=== PATIENT | female | born 1950 | race Caucasian/White ===

== ENCOUNTER → 2018-03-14 | Outpatient (CLI) | payer OTHER ==
[~2018-03-14] MED LIST: GADOBENATE DIMEGLUMINE 1 ML IV ONE
[2018-03-14 08:46] LABS: BLOOD UREA NITROGEN 11 mg/dL (7-26); BUN/CREATININE RATIO 15 (6-25); CREATININE, SERUM 0.75 mg/dL (0.57-1.11); EST GLOMERULAR FILTRATION RATE > 60 ML/MIN (60-)
--- NOTE | 2018-03-14 13:52 | Diagnostic Imaging Report ---
EXAMINATION: Brain MRI and MR angiogram of the [place] of [place] [facility] [place] CLINICAL HISTORY: Leg weakness, dizziness worsening for last 6 months. COMPARISON: None available TECHNIQUE: Brain: Sagittal T2; axial DWI, T2, FLAIR, T1-IR, T2 gradient echo; coronal FLAIR. Postcontrast axial, sagittal and coronal T1 fat sat. MRAs: 3D TOF and 2D-TOF images were obtained of the brain and neck. Intravenous Contrast: 14 ml of MultiHance. BRAIN MRI FINDINGS: Parenchyma: 1. Few scatter periventricular, gaspar radiata and centrum semiovale white matter T2 and FLAIR hyperintense foci, most likely nonspecific chronic microvascular ischemic changes, within normal limits for patient's age. No abnormal enhancement 2. No mass, hemorrhage, acute or chronic infarcts. Skull: Unremarkable. Vessels: Expected flow voids present in the major arteries and dural sinuses. Extra-axial spaces: No abnormal signal intensity or mass effect. Brain volume: Mild generalized brain volume loss. Ventricles: No hydrocephalus or displacement. Foramen magnum: Unremarkable. Sella: Unremarkable. Paranasal / mastoid sinuses: No significant inflammatory disease. MRA OF THE [place] : Mild vertebrobasilar dolichoectasia. The distal internal carotid, distal vertebral, basilar, and cerebral arteries are patent. No significant stenosis, occlusion, aneurysm, or arteriovenous malformation is seen. Anatomic variation: Anterior Communicating Artery: Not well visualized. Posterior Communicating Arteries: Patent on the left, with origin of the left MANAGER FUNCTIONAL. Not well-visualized on the right. Prominent infundibulum at the origin of the left posterior communicating artery versus tiny aneurysm. Vertebral arteries: The left is dominant MRA OF THE NECK: If present, stenosis of the carotid bulbs is measured based on NASCET criteria i.e area of maximum stenosis compared to the cervical ICA distal to the bulb. Aortic arch and origin of the vessels: Unremarkable. Right Carotid Artery: The common carotid, carotid bulb, internal and external carotid arteries at the level of the neck are normal in caliber, and patent, no evidence of stenoses. Left Carotid Artery: The common carotid, carotid bulb, internal and external carotid arteries at the level of the neck are normal in caliber, and patent, no evidence of stenoses. Vertebral Arteries: Both are normal in morphology and caliber. Both are codominant. No significant stenosis is seen. IMPRESSION: Brain MRI: 1. No acute infarcts. 2. Mild chronic microvascular ischemic changes. MR angiogram of the head and neck: Prominent infundibulum at the origin of the left posterior communicating artery. Otherwise normal MR angiography of the head and neck, particularly no major vessel occlusion or hemodynamically significant stenosis is seen in the carotid or vertebral arteries. Signed by: Dr. Dara Mendoza M.D. on 03/14/2018 1:49 PM
--- NOTE | 2018-03-14 13:52 | Diagnostic Imaging Report ---
EXAMINATION: Brain MRI and MR angiogram of the [place] of [place] [facility] [place] CLINICAL HISTORY: Leg weakness, dizziness worsening for last 6 months. COMPARISON: None available TECHNIQUE: Brain: Sagittal T2; axial DWI, T2, FLAIR, T1-IR, T2 gradient echo; coronal FLAIR. Postcontrast axial, sagittal and coronal T1 fat sat. MRAs: 3D TOF and 2D-TOF images were obtained of the brain and neck. Intravenous Contrast: 14 ml of MultiHance. BRAIN MRI FINDINGS: Parenchyma: 1. Few scatter periventricular, gaspar radiata and centrum semiovale white matter T2 and FLAIR hyperintense foci, most likely nonspecific chronic microvascular ischemic changes, within normal limits for patient's age. No abnormal enhancement 2. No mass, hemorrhage, acute or chronic infarcts. Skull: Unremarkable. Vessels: Expected flow voids present in the major arteries and dural sinuses. Extra-axial spaces: No abnormal signal intensity or mass effect. Brain volume: Mild generalized brain volume loss. Ventricles: No hydrocephalus or displacement. Foramen magnum: Unremarkable. Sella: Unremarkable. Paranasal / mastoid sinuses: No significant inflammatory disease. MRA OF THE [place] OF [place] : Mild vertebrobasilar dolichoectasia. The distal internal carotid, distal vertebral, basilar, and cerebral arteries are patent. No significant stenosis, occlusion, aneurysm, or arteriovenous malformation is seen. Anatomic variation: Anterior Communicating Artery: Not well visualized. Posterior Communicating Arteries: Patent on the left, with origin of the left AV SPECIALIST. Not well-visualized on the right. Prominent infundibulum at the origin of the left posterior communicating artery versus tiny aneurysm. Vertebral arteries: The left is dominant MRA OF THE NECK: If present, stenosis of the carotid bulbs is measured based on NASCET criteria i.e area of maximum stenosis compared to the cervical ICA distal to the bulb. Aortic arch and origin of the vessels: Unremarkable. Right Carotid Artery: The common carotid, carotid bulb, internal and external carotid arteries at the level of the neck are normal in caliber, and patent, no evidence of stenoses. Left Carotid Artery: The common carotid, carotid bulb, internal and external carotid arteries at the level of the neck are normal in caliber, and patent, no evidence of stenoses. Vertebral Arteries: Both are normal in morphology and caliber. Both are codominant. No significant stenosis is seen. IMPRESSION: Brain MRI: 1. No acute infarcts. 2. Mild chronic microvascular ischemic changes. MR angiogram of the head and neck: Prominent infundibulum at the origin of the left posterior communicating artery. Otherwise normal MR angiography of the head and neck, particularly no major vessel occlusion or hemodynamically significant stenosis is seen in the carotid or vertebral arteries. Signed by: Dr. Dara Mendoza M.D. on 03/14/2018 1:49 PM
--- NOTE | 2018-03-14 13:52 | Diagnostic Imaging Report ---
EXAMINATION: Brain MRI and MR angiogram of the [place] of [place] [facility] [place] CLINICAL HISTORY: Leg weakness, dizziness worsening for last 6 months. COMPARISON: None available TECHNIQUE: Brain: Sagittal T2; axial DWI, T2, FLAIR, T1-IR, T2 gradient echo; coronal FLAIR. Postcontrast axial, sagittal and coronal T1 fat sat. MRAs: 3D TOF and 2D-TOF images were obtained of the brain and neck. Intravenous Contrast: 14 ml of MultiHance. BRAIN MRI FINDINGS: Parenchyma: 1. Few scatter periventricular, gaspar radiata and centrum semiovale white matter T2 and FLAIR hyperintense foci, most likely nonspecific chronic microvascular ischemic changes, within normal limits for patient's age. No abnormal enhancement 2. No mass, hemorrhage, acute or chronic infarcts. Skull: Unremarkable. Vessels: Expected flow voids present in the major arteries and dural sinuses. Extra-axial spaces: No abnormal signal intensity or mass effect. Brain volume: Mild generalized brain volume loss. Ventricles: No hydrocephalus or displacement. Foramen magnum: Unremarkable. Sella: Unremarkable. Paranasal / mastoid sinuses: No significant inflammatory disease. MRA OF THE [place] : Mild vertebrobasilar dolichoectasia. The distal internal carotid, distal vertebral, basilar, and cerebral arteries are patent. No significant stenosis, occlusion, aneurysm, or arteriovenous malformation is seen. Anatomic variation: Anterior Communicating Artery: Not well visualized. Posterior Communicating Arteries: Patent on the left, with origin of the left STRENGTH AND CONDITIONING COACH. Not well-visualized on the right. Prominent infundibulum at the origin of the left posterior communicating artery versus tiny aneurysm. Vertebral arteries: The left is dominant MRA OF THE NECK: If present, stenosis of the carotid bulbs is measured based on NASCET criteria i.e area of maximum stenosis compared to the cervical ICA distal to the bulb. Aortic arch and origin of the vessels: Unremarkable. Right Carotid Artery: The common carotid, carotid bulb, internal and external carotid arteries at the level of the neck are normal in caliber, and patent, no evidence of stenoses. Left Carotid Artery: The common carotid, carotid bulb, internal and external carotid arteries at the level of the neck are normal in caliber, and patent, no evidence of stenoses. Vertebral Arteries: Both are normal in morphology and caliber. Both are codominant. No significant stenosis is seen. IMPRESSION: Brain MRI: 1. No acute infarcts. 2. Mild chronic microvascular ischemic changes. MR angiogram of the head and neck: Prominent infundibulum at the origin of the left posterior communicating artery. Otherwise normal MR angiography of the head and neck, particularly no major vessel occlusion or hemodynamically significant stenosis is seen in the carotid or vertebral arteries. Signed by: Dr. Dara Mendoza M.D. on 03/14/2018 1:49 PM
== END ==
LOC: MRI 07:47
PROVIDERS: ATTEND Psychiatry & Neurology Neurology
DX: R42 Dizziness and giddiness (principal); H53.9 Unspecified visual disturbance; R20.8 Other disturbances of skin sensation; Z86.69 Personal history of other diseases of the nervous system and sense organs
CPT/HCPCS: 36415; 70544; 70547; 70553; 82565; 84520

== ENCOUNTER 2021-07-26 20:50 | Emergency (ER) | payer MEDICARE, OTHER ==
[~2021-07-26] VITALS: Ht 165.1 cm; Wt 63.5 kg
[2021-07-26] MEDS ORDERED: SODIUM CHLORIDE 0.9% 1000ML 1,000 ML IV SCH (21:30)
[2021-07-26] MEDS ORDERED: FAMOTIDINE 20 MG/2 ML VIAL IV STA (21:40)
[2021-07-26] MEDS ORDERED: METHYLPREDNISOLONE SOD SUCC 125 MG/2ML VIAL IV ONE (21:41)
[2021-07-26] MEDS ORDERED: ACETAMINOPHEN 325 MG TAB ONE (21:42)
[2021-07-26] MEDS ORDERED: SODIUM CHLORIDE 0.9% 1000ML 1,000 ML ONE (21:42)
[2021-07-26] MEDS ORDERED: FAMOTIDINE 20 MG/2 ML VIAL IV ONE (21:42)
[2021-07-26] MEDS ORDERED: DIPHENHYDRAMINE HCL INJ 50 MG/ML VIAL ONE (21:42)
[2021-07-26] MEDS ORDERED: DIPHENHYDRAMINE HCL INJ 50 MG/ML VIAL IV ONE (21:42)
[2021-07-26] MEDS ORDERED: ACETAMINOPHEN 325 MG TAB PO ONE (21:42)
[2021-07-26] MEDS ORDERED: METHYLPREDNISOLONE SOD SUCC 125 MG/2ML VIAL ONE (21:42)
[2021-07-26] MEDS ORDERED: EPINEPHRINE HCL 1:1000 1ML 1 MG/ML AMP ONE (21:53)
[2021-07-26] MEDS ORDERED: PREDNISONE20 MG PO (22:58)
[2021-07-26] MEDS ORDERED: EPINEPHRIN0.3 MG/0.3 SC (23:03)
== END 2021-07-27 | disposition home or self-care (01) ==
LOC: FSED 21:02
DX: T88.6XXA Anaphylactic reaction due to adverse effect of correct drug or medicament properly administered, initial encounter (principal); T50.8X5A Adverse effect of diagnostic agents, initial encounter; I10 Essential (primary) hypertension; E78.5 Hyperlipidemia, unspecified; Y84.8 Other medical procedures as the cause of abnormal reaction of the patient, or of later complication, without mention of misadventure at the time of the procedure
CPT/HCPCS: 87400; 93005; 99283; J0171; J1200; J2930; J7030

== ENCOUNTER → 2022-05-28 | Day surgery (SDC) | payer MEDICARE ==
[2022-05-24 10:57] LABS: BASOPHILS # (AUTO) 0.1 (0.0-0.1); BASOPHILS % 0.9 % (0.0-1.0); EOSINOPHILS # (AUTO) 0.2 (0.0-0.4); EOSINOPHILS % 2.4 % (0.0-6.0); HEMATOCRIT 46.4 % (34.2-44.1); HEMOGLOBIN 14.8 g/dL (12.0-16.0); LYMPHOCYTES # (AUTO) 2.1 (1.0-3.2); LYMPHOCYTES % 27.6 % (18.0-39.1); MEAN CORPUSCULAR HEMOGLOBIN 27.5 pg (28-32); MEAN CORPUSCULAR HGB CONC 31.9 g/dL (31-35); MEAN CORPUSCULAR VOLUME 86.2 fL (81-99); MONOCYTES # (AUTO) 0.6 (0.2-0.8); MONOCYTES % 7.3 % (4.4-11.3); NEUTROPHILS # (AUTO) 4.6 (2.1-6.9); NEUTROPHILS % 61.7 % (38.7-80.0); PLATELET COUNT 187 x10e3/uL (140-360); RED BLOOD COUNT 5.38 x10e6/uL (3.6-5.1); RED CELL DISTRIBUTION WIDTH 14.4 % (11.7-14.4)
[~2022-05-28] MED LIST changes: +CRESTOR10 MG PO; +DIOVAN80 MG PO; +EPINEPHRIN0.3 MG/0.3 SC; +FENTANYL CITRATE/PF 100MCG/2 ML INJ ONE; -GADOBENATE DIMEGLUMINE 1 ML IV ONE; +HYOSCYAMINE SULFATE 0.5 MG/ML INJ ONE; +LACTATED RINGER'S 1,000 ML ONE; +LIDOCAINE HCL 2% LOCAL INJ 5 ML SDV VIAL INJ ONE; +METOCLOPRAMIDE HCL 10 MG/2ML VIAL ONE; +PREDNISONE20 MG PO; +PROPOFOL IV EMULSION 10 MG/ML 20 ML VIAL ONE
[2022-05-28 15:20] VITALS: BP 104/69
== END | disposition home or self-care (01) ==
LOC: OR 11:03
PROVIDERS: ATTEND Internal Medicine Gastroenterology
DX: K29.70 Gastritis, unspecified, without bleeding (principal); K31.7 Polyp of stomach and duodenum; K20.90 Esophagitis, unspecified without bleeding; K31.89 Other diseases of stomach and duodenum; K56.609 Unspecified intestinal obstruction, unspecified as to partial versus complete obstruction; K57.30 Diverticulosis of large intestine without perforation or abscess without bleeding; K59.09 Other constipation; R19.5 Other fecal abnormalities; Z71.3 Dietary counseling and surveillance; R63.4 Abnormal weight loss; I10 Essential (primary) hypertension; E78.00 Pure hypercholesterolemia, unspecified; Z01.810 Encounter for preprocedural cardiovascular examination; Z01.812 Encounter for preprocedural laboratory examination; Z79.899 Other long term (current) drug therapy; Z79.82 Long term (current) use of aspirin; Z87.440 Personal history of urinary (tract) infections; Z86.16 Personal history of COVID-19
CPT/HCPCS: 36415; 43239; 43251; 45378; 85025; 93005; C9113; J1980; J2001; J2704; J2765; J3010; J7121

== ENCOUNTER → 2022-06-08 | Outpatient (CLI) | payer MEDICARE ==
[~2022-06-08] MED LIST changes: +DIATRIZOATE MEGL/DIATRIZOA SOD 30 ML BTL PO ONE; -FENTANYL CITRATE/PF 100MCG/2 ML INJ ONE; -HYOSCYAMINE SULFATE 0.5 MG/ML INJ ONE; +IOPAMIDOL 370 MG/ML 100 ML INFUS..BTL INJ ONE; -LACTATED RINGER'S 1,000 ML ONE; -LIDOCAINE HCL 2% LOCAL INJ 5 ML SDV VIAL INJ ONE; -METOCLOPRAMIDE HCL 10 MG/2ML VIAL ONE; -PROPOFOL IV EMULSION 10 MG/ML 20 ML VIAL ONE
[2022-06-08 17:41] LABS: CREATININE, SERUM 0.68 mg/dL (0.57-1.11)
== END ==
LOC: CT 16:16
PROVIDERS: ATTEND Internal Medicine Gastroenterology
DX: K59.00 Constipation, unspecified (principal); R11.0 Nausea; R63.4 Abnormal weight loss
CPT/HCPCS: 36415; 74177; 82565; 84520; Q9963; Q9967

== ENCOUNTER → 2022-06-11 | Outpatient (CLI) | payer MEDICARE ==
[~2022-06-11] MED LIST changes: -DIATRIZOATE MEGL/DIATRIZOA SOD 30 ML BTL PO ONE; -IOPAMIDOL 370 MG/ML 100 ML INFUS..BTL INJ ONE
== END ==
LOC: DX 11:58
PROVIDERS: ATTEND Internal Medicine Gastroenterology
DX: K59.00 Constipation, unspecified (principal); R11.0 Nausea; R63.4 Abnormal weight loss
CPT/HCPCS: 74270